=== PATIENT | female | born 1970 | race Native Hawaiian/Other Pacific Islander ===

== ENCOUNTER 2017-02-22 14:12 | Emergency (ER) | payer OTHER ==
[~2017-02-22] VITALS: Ht 172.7 cm; Wt 122.5 kg
[~2017-02-22 14:12] MED LIST: ACET-689 PO; ACET5TAB36 PO; ALPR0.5T24 PO; CELEXA20 MG PO; CIPRO500 MG PO; CLARITIN10 MG PO; ESTR1TAB13 PO; FLEXERIL5 MG PO; FLUT0.05 NAS; GABA100C2 PO; GABA300C2 PO; MEDROL DOSEPAK4 MG OR; MEDROL DOSEPAK4 MG PO; MELO-13 PO; PANT40TA PO; PYRIDIUM100 MG PO; SIMV20TA2 PO
[2017-02-22 14:22] VITALS: TEMP 98.3
[2017-02-22 15:38] VITALS: BP 174/86
== END 2017-02-22 15:39 | disposition home or self-care (01) ==
LOC: ED 14:12
DX: M79.671 Pain in right foot (principal); X50.1XXA Overexertion from prolonged static or awkward postures, initial encounter; Y92.512 Supermarket, store or market as the place of occurrence of the external cause
CPT/HCPCS: 36415; 84550; 99283

== ENCOUNTER 2017-03-27 12:21 | Emergency (ER) | payer OTHER ==
[~2017-03-27] VITALS: Ht 170.2 cm; Wt 122.5 kg
[2017-03-27 12:32] VITALS: BP 135/87; TEMP 98.2
[2017-03-27 13:20] LABS: PLATELET COUNT 346 K/uL (152-353)
[2017-03-27 13:29] LABS: POTASSIUM 3.7 mmol/L (3.6-5.2); SODIUM 139 mmol/L (136-145)
== END 2017-03-27 15:00 | disposition home or self-care (01) ==
LOC: ED 12:21
DX: G62.89 Other specified polyneuropathies (principal)
CPT/HCPCS: 80053; 81000; 83036; 85027; 99283

== ENCOUNTER 2017-06-29 13:09 | Emergency (ER) | payer OTHER ==
[~2017-06-29] VITALS: Ht 172.7 cm; Wt 122.5 kg
[2017-06-29 13:13] VITALS: BP 140/80; TEMP 97.8
== END 2017-06-29 13:59 | disposition home or self-care (01) ==
LOC: ED 13:09
DX: S93.401A Sprain of unspecified ligament of right ankle, initial encounter (principal); S80.212A Abrasion, left knee, initial encounter; M25.062 Hemarthrosis, left knee; W18.09XA Striking against other object with subsequent fall, initial encounter; Y92.512 Supermarket, store or market as the place of occurrence of the external cause
CPT/HCPCS: 90715; 99282

== ENCOUNTER 2018-06-14 08:23 | Outpatient (CLI) | payer OTHER | END 2018-06-14 19:24 | disposition home or self-care (01) | LOC: RAD 08:23 | DX: H54.7 Unspecified visual loss (principal); M25.559 Pain in unspecified hip; M79.669 Pain in unspecified lower leg; M79.673 Pain in unspecified foot ==

== ENCOUNTER 2018-10-28 09:50 | Outpatient (CLI) | payer OTHER | END 2018-10-28 09:53 | disposition short-term general hospital (02) | LOC: AMB 09:50 | DX: R00.2 Palpitations (principal) | CPT/HCPCS: A0425; A0427 ==

== ENCOUNTER 2018-10-28 09:57 | Emergency (ER) | payer OTHER ==
[~2018-10-28] VITALS: Ht 172.7 cm; Wt 136.1 kg
[2018-10-28 10:18] LABS: PLATELET COUNT 426 K/uL (152-353)
[2018-10-28 10:28] LABS: POTASSIUM 3.1 mmol/L (3.6-5.2); SODIUM 141 mmol/L (136-145)
[2018-10-28 11:18] VITALS: BP 131/68; TEMP 97.9
== END 2018-10-28 11:20 | disposition home or self-care (01) ==
LOC: ED 09:57
PROVIDERS: Family Medicine
DX: R00.2 Palpitations (principal); R03.0 Elevated blood-pressure reading, without diagnosis of hypertension; R00.0 Tachycardia, unspecified
CPT/HCPCS: 80053; 82550; 82553; 84484; 85027; 93005; 99283

== ENCOUNTER 2022-06-05 16:18 | Emergency (ER) | payer OTHER ==
[~2022-06-05] VITALS: Ht 172.7 cm; Wt 113.4 kg
[2022-06-05 16:20] VITALS: TEMP 98.2
[2022-06-05 18:33] VITALS: BP 158/80
== END 2022-06-05 18:34 | disposition home or self-care (01) ==
LOC: ED 16:18
DX: S92.514A Nondisplaced fracture of proximal phalanx of right lesser toe(s), initial encounter for closed fracture (principal); S90.31XA Contusion of right foot, initial encounter; W22.8XXA Striking against or struck by other objects, initial encounter; Y92.098 Other place in other non-institutional residence as the place of occurrence of the external cause
CPT/HCPCS: 99283

== ENCOUNTER 2022-08-30 14:51 | Outpatient (CLI) | payer BC | END 2022-08-30 20:32 | disposition home or self-care (01) | LOC: RAD 14:51 | PROVIDERS: ATTEND Nurse Practitioner Family | DX: M54.17 Radiculopathy, lumbosacral region (principal) ==